=== PATIENT | female | born 1970 | race Caucasian/White ===

== ENCOUNTER 2022-08-21 10:40 | Emergency (ER) | payer MEDICAID ==
[~2022-08-21] VITALS: Ht 172.7 cm; Wt 71.0 kg
[2022-08-21] MEDS ORDERED: iohexol 350MG/ML 100ml bottle IV ONE (10:50)
[2022-08-21 11:20] LABS: BASOPHILS # (AUTO) 0.1 X10'3 (0-0.2); BASOPHILS % (AUTO) 0.8 % (0-1); EOSINOPHILS # (AUTO) 0.3 X10'3 (0-0.9); EOSINOPHILS % (AUTO) 3.2 % (0-6); LYMPHOCYTES # (AUTO) 1.5 X10'3 (1.1-4.8); MEAN CORPUSCULAR HEMOGLOBIN 28.1 PG (27.0-31.0); MEAN CORPUSCULAR HGB CONC 33.3 g/dL (33.0-36.5); MEAN CORPUSCULAR VOLUME 84.2 FL (78-98); MEAN PLATELET VOLUME 9.2 FL (7.4-10.4); MONOCYTES # (AUTO) 0.7 X10'3 (0-0.9); NEUTROPHILS # (AUTO) 5.9 X10'3 (1.8-7.7); PLATELET COUNT 255 X10'3 (140-440); RED BLOOD COUNT 4.98 X10'6 (4.20-5.60); RED CELL DISTRIBUTION WIDTH 13.8 % (11.5-14.5); WHITE BLOOD COUNT 8.4 X10'3 (4.5-11.0)
[2022-08-21 11:33] LABS: ALANINE AMINOTRANSFERASE 31 U/L (12-78); ALBUMIN 3.8 G/DL (3.4-5.0); ALKALINE PHOSPHATASE 123 IU/L (46-116); ANION GAP 12 (8-16); ASPARTATE AMINO TRANSFERASE 21 U/L (10-37); BILIRUBIN,TOTAL 0.4 MG/DL (0.1-1.0); BLOOD UREA NITROGEN 6 MG/DL (7-18); BUN/CREATININE RATIO 7.6 (6.6-38.0); CALCIUM 9.2 MG/DL (8.5-10.1); CHLORIDE 104 MMOL/L (99-107); CREATININE 0.79 MG/DL (0.40-0.90); GLUCOSE 120 MG/DL (70-104); MAGNESIUM 2.2 MG/DL (1.5-2.4); POTASSIUM 3.6 MMOL/L (3.5-5.1); SODIUM 140 MMOL/L (135-145); TOTAL CARBON DIOXIDE 24.5 MMOL/L (24-32); TOTAL PROTEIN 7.5 G/DL (6.4-8.2); eGFR 77 ML/MIN
[2022-08-21] MEDS ORDERED: aspirin 325mg tablet PO ONE (12:05)
[2022-08-21 13:14] VITALS: BP 170/81
== END 2022-08-21 13:15 | disposition short-term general hospital (02) ==
LOC: ER 10:40
DX: I65.22 Occlusion and stenosis of left carotid artery (principal); R20.0 Anesthesia of skin; I10 Essential (primary) hypertension; F17.200 Nicotine dependence, unspecified, uncomplicated; G89.29 Other chronic pain
CPT/HCPCS: 36415; 70450; 70496; 70498; 71045; 80053; 83735; 83880; 84484; 85025; 86885; 86900; 86901; 93005; 99291; J3490; Q9967

== ENCOUNTER 2024-07-14 11:16 | Emergency (ER) | payer MEDICAID ==
[~2024-07-14] VITALS: Ht 172.7 cm; Wt 88.2 kg
[2024-07-14] MEDS: LIDOcaine/epinephrine/tetracaine TOPICAL sol 3 ML syringe TOP ONE (12:58)
[2024-07-14] MEDS: HYDROcodone/acetaminophen 5mg/325mg tablet PO STA (12:59)
[2024-07-14] MEDS ORDERED: CLIN-214 PO (14:23)
[2024-07-14] MEDS ORDERED: HYDR-3965 PO (14:23)
[2024-07-14 15:01] VITALS: BP 134/76; PULSE 88; RESP 18; TEMP 98.7; O2SAT 98
== END 2024-07-14 15:04 | disposition home or self-care (01) ==
LOC: ER 11:16
DX: K13.0 Diseases of lips (principal); I10 Essential (primary) hypertension; F17.210 Nicotine dependence, cigarettes, uncomplicated; Z88.0 Allergy status to penicillin; Z88.2 Allergy status to sulfonamides
CPT/HCPCS: 10060; 99283; J3490; A6449

== ENCOUNTER 2025-07-24 10:19 | Outpatient (CLI) | payer MEDICAID ==
[~2025-07-24 10:19] MED LIST: CLIN-214 PO
--- NOTE | 2025-07-24 11:50 | RADIOLOGY REPORT ---
PROCEDURE: MR MRI LUMBAR SPINE INDICATION: ACUTE LOW BACK PAIN Exam Date: 07/24/2025 10:34 AM COMPARISON: None TECHNIQUE: MRI lumbar spine without intravenous contrast. FINDINGS: No fracture or listhesis of the lumbar spine. The conus terminates at L1. L1-L2: There is a mild circumferential disc bulge. No significant spinal canal stenosis or neural foraminal stenosis bilaterally. L2-L3: There is a circumferential the bulge, most prominent in the right foraminal and lateral regions. There is mild bilateral facet hypertrophy. No significant spinal canal stenosis or neural foraminal stenosis bilaterally. L3-L4: There is a circumferential disc bulge with endplate hypertrophy, most prominent in the left foraminal region. There is bilateral facet and ligamentum flavum hypertrophy. No significant spinal canal stenosis or neural foraminal stenosis bilaterally. L4-L5: There is disc desiccation with near-complete loss of disc height. Possible vacuum phenomenon in the disc. There are Modic type 1 and 2 changes in the adjacent endplates. There is a circumferential disc bulge with endplate hypertrophy, most prominent in the foraminal regions. There is bilateral facet and ligamentum flavum hypertrophy. No significant spinal canal stenosis. There is moderate bilateral neural foraminal stenosis. L5-S1: There is disc desiccation with loss of disc height. Probable vacuum phenomenon in the disc. There are modic type 1 and 2 changes in the adjacent endplates. There is a circumferential disc bulge with endplate hypertrophy, most prominent in the foraminal regions. There is a disc annulus tear in the posterior midline without focal disc herniation. There is bilateral facet and ligamentum flavum hypertrophy. No significant spinal canal stenosis. There is moderate right and moderate to severe left neural foraminal stenosis. IMPRESSION: 1. No fracture of the lumbar spine. 2. Advanced lower lumbar degenerative disc disease and facet arthropathy with significant neural foraminal stenosis bilaterally at L4-L5 and L5-S1. These findings May correspond to lower extremity radicular symptoms in the L4 and L5 nerve root distributions. 3. No high-grade spinal canal stenosis at any level in the lumbar spine.
== END 2025-07-24 23:59 | disposition home or self-care (01) ==
LOC: MRI02 10:19
PROVIDERS: ATTEND Family Medicine
DX: M51.17 Intervertebral disc disorders with radiculopathy, lumbosacral region (principal); M47.27 Other spondylosis with radiculopathy, lumbosacral region; M48.07 Spinal stenosis, lumbosacral region
CPT/HCPCS: 72148